=== PATIENT | male | born 1950 | race African-American/Black ===

== ENCOUNTER 2018-09-25 11:40 | Day surgery (SDC) | payer OTHER, MEDICARE ==
[2018-09-25] MEDS ORDERED: DIPHENHYDRAMINE HCL 50 MG/ML VIAL ONE (11:58)
[2018-09-25] MEDS ORDERED: FENTANYL CITRATE INJ/PF 100 MCG/2 ML AMPUL ONE (11:58)
[2018-09-25] MEDS ORDERED: ONDANSETRON HCL INJ/PF 4 MG/2 ML SDV ONE (11:58)
[2018-09-25] MEDS ORDERED: NALOXONE HCL INJ/PF 0.4 MG/1 ML SDV ONE (11:59)
[2018-09-25] MEDS ORDERED: EPINEPHRINE INJ 1 MG/10 ML DISP.SYRIN ONE (11:59)
[2018-09-25] MEDS ORDERED: GLUCAGON,HUMAN RECOMB 1 MG INJ ONE (11:59)
[2018-09-25] MEDS ORDERED: FLUMAZENIL INJ 0.5 MG/5 ML VIAL ONE (11:59)
[2018-09-25] MEDS ORDERED: MIDAZOLAM 2 MG/2 ML INJ ONE (11:59)
--- NOTE | 2018-09-25 13:27 | Operative Report ---
Operative Report DATE OF SURGERY: 09/25/18 Operative Report: The risks, benefits and alternatives of the procedure including the risks of bleeding, perforation requiring surgery are explained to the patient in detail and informed consent was obtained. Patient was brought back to the endoscopy suite and placed in the left, lateral decubital position. Timeout was called. Conscious sedation medications administered. A rectal examination is done which did not reveal any masses, tears or fissures. An Olympus videoscope was introduced into the patient's rectum. The scope was then carefully advanced all the way to the cecum. The cecum was identified by the usual anatomical landmarks including the ileocecal valve as well as the appendiceal office. Photodocumentation is obtained. The scope was then sequentially pulled back via the rest segments of the colon including the ascending colon, hepatic flexure, transverse colon, splenic flexure, descending colon and finally into the rectosigmoid portions of the colon. Retroflexion maneuver was performed. PREOPERATIVE DIAGNOSIS: Personal history of polyp POSTOPERATIVE DIAGNOSIS: Normal screening OPERATION: Diagnostic colonoscopy SURGEON: MARCIE GARRISON ANESTHESIA: Moderate Sedation - 4 mg of Versed, 50 mcg of fentanyl. Conscious sedation monitoring time 30 minutes. TISSUE REMOVED OR ALTERED: None. COMPLICATIONS: None. ESTIMATED BLOOD LOSS: None. INTRAOPERATIVE FINDINGS: As noted above. PROCEDURE: Patient tolerated procedure well. No immediate postprocedure complications are noted. Patient discharged in good condition. Discharge date 09/25/2018. Discharge diet: Regular. Discharge activity: Regular. 2-3-week follow-up to discuss findings. Patient is instructed to the office or proceed to the emergency room should there be any further progression.
[2018-09-25 13:28] VITALS: BP 146/66
== END 2018-09-25 13:30 | disposition home or self-care (01) ==
LOC: END 11:40
PROVIDERS: ATTEND Internal Medicine Gastroenterology
DX: Z12.11 Encounter for screening for malignant neoplasm of colon (principal); Z86.010 Personal history of colon polyps; E11.22 Type 2 diabetes mellitus with diabetic chronic kidney disease; I12.9 Hypertensive chronic kidney disease with stage 1 through stage 4 chronic kidney disease, or unspecified chronic kidney disease; N18.1 Chronic kidney disease, stage 1
CPT/HCPCS: 45378; 82962; J2250; J3010; J0171; J1200; J1610; J2310; J2405; J3490